=== PATIENT | female | born 1985 | race Caucasian/White ===

== ENCOUNTER 2018-09-22 09:43 | Outpatient (CLI) | payer OTHER ==
[2018-09-22] MEDS ORDERED: GADOPENTETATE DIMEGLUMINE 5 ML VIAL IVP ONE ×2 (09:49→10:42)
[2018-09-22] MEDS ORDERED: IOTHALAMATE MEGLUMINE 50 ML VIAL ONE (09:49)
[2018-09-22] MEDS ORDERED: LIDOCAINE 1% 10 ML MDV ONE (09:50)
[2018-09-22] MEDS ORDERED: IOTHALAMATE MEGLUMINE 50 ML VIAL IVP ONE (10:42)
[2018-09-22] MEDS ORDERED: BUFFERED LIDOCAINE 10 ML SYRINGE IU ONE (10:42)
--- NOTE | 2018-09-22 12:41 | XRAY Report ---
Reason: PAIN IN UNSPECIFIED SHOULDER Procedure Date: 09/22/2018 Accession Number: [id number] / [id number] Procedure: FL - Arthrogram Needle Placement CPT Code: FULL RESULT: EXAM: RIGHT SHOULDER ARTHROGRAPHIC INJECTION WITH FLUOROSCOPIC GUIDANCE EXAM DATE: 09/22/2018 10:38 AM. CLINICAL HISTORY: Pain in unspecified shoulder. COMPARISON: ARTHROGRAM SHOULDER RT 09/22/2018 10:54 AM. TECHNIQUE: The risks, benefits, and alternatives of the procedure were discussed with the patient. All questions were answered. Written and verbal consent were obtained. The glenohumeral joint was marked under fluoroscopy and prepped and draped in a sterile manner. Local anesthesia was performed with 1% lidocaine. A 22-gauge needle was then inserted into the glenohumeral joint. 10 mL of a solution containing 25% 1% lidocaine, 25% iodinated contrast, and a 1:200 dilution of gadolinium contrast in sterile saline was then injected. The needle was removed without immediate complication. Other: None. Fluoroscopy Time: 0.1 minutes. Number of Images: 2. FINDINGS: Bones and joints: No fracture or subluxation. Injection: Fluoroscopic images demonstrate needle placement and contrast in the glenohumeral joint. No contrast extravasation outside of the glenohumeral joint. IMPRESSION: Successful fluoroscopically guided arthrographic injection of the shoulder. [facility]
--- NOTE | 2018-09-22 17:15 | MRI Report ---
Reason: PAIN IN UNSPECIFIED SHOULDER Procedure Date: 09/22/2018 Accession Number: [id number] / [id number] Procedure: MRI - Arthrogram Shoulder RT CPT Code: FULL RESULT: EXAM: RIGHT SHOULDER MRI ARTHROGRAM WITH CONTRAST EXAM DATE: 09/22/2018 11:28 AM. CLINICAL HISTORY: Right shoulder pain for several weeks. COMPARISON: None. TECHNIQUE: Multiplanar, multisequence T1-weighted and fluid-sensitive sequences of the shoulder after an arthrographic injection of dilute gadolinium, dictated under a separate exam. Other: None. FINDINGS: Acromioclavicular Region: The acromion is type II. The acromioclavicular joint is unremarkable. The coracoacromial and coracoclavicular ligaments are intact. A minimal amount of contrast in the anterior subacromial/subdeltoid bursa is suspected to be iatrogenically placed, using it because of the rotator interval technique that was used for injection. Glenohumeral Region: No subluxation. No loose bodies. The articular cartilage is unremarkable. The glenohumeral ligaments and joint capsule are unremarkable. Bone Marrow: No fracture, marrow edema or bone lesions. Labrum: A full-thickness tear of the posterior-superior labrum can be seen on series 701, image 14). Biceps Tendon: The long head of the biceps tendon and biceps janeth are intact. Musculature/Rotator Cuff: The subscapularis, supraspinatus, infraspinatus, and teres minor tendons are intact. No edema or fatty atrophy. Other: The subcutaneous tissues are unremarkable. IMPRESSION: 1. Contrast in the subacromial/subdeltoid bursa appears to be iatrogenically placed. 2. Full-thickness tear of the posterior-superior labrum. [facility] MUSCULOSKELETAL RADIOLOGY SECTION
== END 2018-09-22 09:44 | disposition home or self-care (01) ==
LOC: DI 09:43
PROVIDERS: ATTEND Radiology Diagnostic Radiology
DX: S43.491A Other sprain of right shoulder joint, initial encounter (principal)
CPT/HCPCS: 23350; 73222; 77002; Q9961

== ENCOUNTER 2018-12-30 10:14 | Day surgery (SDC) | payer OTHER ==
[~2018-12-30 10:14] MED LIST: BUPIVACAINE 0.25% PF 10 ML VIAL ONE; EPINEPHrine 1 MG/ML AMP ONE
--- NOTE | 2018-12-30 10:16 | ANESTHESIA ---
Pre-Anesthesia VS, & Labs <Clinton Kent - Last Filed: 12/30/18 10:13> - NPO >8 hours - Is Patient ?: Waiver signed <Raiza Sorto - Last Filed: 12/30/18 11:32> - Diagnosis R shoulder SLAP tear, Labral lateral (Clinton Kent) R shoulder SLAP tear, Labral lateral (Raiza Sorto) - Procedure R shoulder arthroscopy, biceps tenodesis, DCE, SAD (Clinton Kent) R shoulder arthroscopy, biceps tenodesis, DCE, SAD (Raiza Sorto) Vital Signs: Temp Pulse Resp BP Pulse Ox 36 C L 68 12 114/85 H 97 12/30/18 10:36 12/30/18 10:36 12/30/18 10:36 12/30/18 10:36 12/30/18 10:36 Height 5 ft 5 in Weight (kg) 79.38 kg Home Medications and Allergies <Clinton Kent - Last Filed: 12/30/18 10:13> <Raiza Sorto - Last Filed: 12/30/18 11:32> Home Medications: Ambulatory Orders Acetaminophen [Tylenol] 650 mg PO Q6H PRN 12/20/18 Cetirizine [ZyrTEC] 10 mg PO DAILY 12/20/18 Pnv95/Ferrous Fumarate/FA [ Formula] 1 each PO 12/20/18 Thyroid,Pork [Nisswa Thyroid] 60 mg PO 12/20/18 Thyroid,Pork [Nisswa Thyroid] 90 mg PO 12/20/18 Acetaminophen [Tylenol] 650 mg PO Q6H PRN 12/20/18 Cetirizine [ZyrTEC] 10 mg PO DAILY 12/20/18 Pnv95/Ferrous Fumarate/FA [ Formula] 1 each PO 12/20/18 Thyroid,Pork [Nisswa Thyroid] 60 mg PO 12/20/18 Thyroid,Pork [Nisswa Thyroid] 90 mg PO 12/20/18 Allergies/Adverse Reactions: Allergies Allergy/AdvReac Type Severity Reaction Status Date / Time No Known Drug Allergies Allergy Verified 12/20/18 13:31 Anes History & Medical History - Medical History Cardiovascular: reports: None Pulmonary: reports: None Gastrointestinal: reports: None Urinary: reports: None Musculoskeletal: reports: Other Endocrine/Autoimmune: reports: HyPOthyroidism - Surgical History General: Other Gynecologic: Tubal ligation Orthopedic: Other <Clinton Kent P - Last Filed: 12/30/18 10:13> - Anesthetic History Anesthesia Complications: reports: No previous complications - Medical History Cardiovascular: reports: None Pulmonary: reports: None Gastrointestinal: reports: None Urinary: reports: None Endocrine/Autoimmune: reports: HyPOthyroidism Smoking Status: Never smoker - Surgical History Gynecologic: Tubal ligation <Raiza Sorto E - Last Filed: 12/30/18 11:32> Exam General: Alert Dental: WNL Mouth Opening: Greater than 4 Fingerbreadths Mallampati classification: I Thyromental Distance: greater than 6 cm Respiratory: Lungs clear Cardiovascular: Regular rate Mental/Cognitive Status: Alert/Oriented X3 <Raiza Sorto E - Last Filed: 12/30/18 11:32> Plan Anesthesia Type: General Consent for Procedure(s) Verified and Reviewed: Yes Code Status: Attempt Resuscitation ASA classification: 2-Mild systemic disease Is this case an emergency?: No <Raiza Sorto E - Last Filed: 12/30/18 11:32>
[2018-12-30] MEDS ORDERED: cefTRIAXone 2 GM VIAL ONE (10:32)
[2018-12-30] MEDS ORDERED: LACTATED RINGERS 1,000 ML IV ONE ×3 (10:35→15:19)
[2018-12-30] MEDS ORDERED: BUPIVACAINE 0.25% PF 10 ML VIAL SUBQ ONE ×2 (13:22→14:30)
[2018-12-30] MEDS ORDERED: ONDANSETRON 4 MG/2 ML VIAL IVP ONE (15:00)
[2018-12-30] MEDS ORDERED: GLYCOPYRROLATE 1 MG/5 ML VIAL IVP ONE (15:00)
[2018-12-30] MEDS ORDERED: fentaNYL 100 MCG/2 ML VIAL IVP ONE (15:00)
[2018-12-30] MEDS ORDERED: ACETAMINOPHEN 1,000 MG/100 ML 100 ML IV ONE (15:00)
[2018-12-30] MEDS ORDERED: MIDAZOLAM 2 MG/2 ML VIAL IVP ONE (15:00)
[2018-12-30] MEDS ORDERED: DEXAMETHASONE 4 MG/ML VIAL IVP ONE (15:00)
[2018-12-30] MEDS ORDERED: LIDOCAINE-MPF 2% 5 ML VIAL IM ONE (15:00)
[2018-12-30] MEDS ORDERED: PROPOFOL 200 MG/20 ML VIAL IVP ONE (15:00)
[2018-12-30] MEDS ORDERED: NEOSTIGMINE 1 MG/1 ML 10 ML MDV IVP ONE (15:00)
[2018-12-30] MEDS ORDERED: ONDANSETRON 4 MG/2 ML VIAL IVP PRN (15:19)
[2018-12-30] MEDS ORDERED: oxyCODONE 5 MG TABLET PO PRN (15:19)
[2018-12-30] MEDS: HYDROmorphone 1 MG/ML CARPUJECT ONE ×4 (15:25→15:50)
--- NOTE | 2018-12-30 15:44 | OPERATIVE REPORT ---
Operative Report - General Procedure Date: 12/30/18 Planned Procedure: Right shoulder arthroscopy, biceps tenodesis, distal clavicle excision, possible subacromial decompression, possible labral repair Pre-Op Diagnosis: Right shoulder SLAP tear, AC joint arthrosis Procedure Performed: Right shoulder arthroscopy, SLAP debridement, Limited intra-articular debridement, open subpectoral biceps tenodesis, open distal clavicle excision. Post Op Diagnosis: Right shoulder SLAP tear, AC joint arthrosis - Procedure Note Primary Surgeon: KATELYNN Barr Secondary Surgeon: CHERELLE Arroyo Anesthesia Technique: General ET tube, Regional block Estimated Blood Loss (mL): 25 - Other Other Information/Narrative: IMPLANTS: Arthrex fiber tack suture anchor POSTOPERATIVE PLAN: 0-2 weeks-Sling at all times. Pendulum exercises 5 times per day. Rehab per biceps tenodesis protocol. EXAMINATION UNDER ANESTHESIA: ROM: 180 degrees of forward flexion 175 degrees abduction, 90 degrees AB ER, 90 degrees AB IR Anterior load and shift: 1+ Posterior load and shift: 1+ Inferior sulcus: Negative ARTHROSCOPIC FINDINGS: Rotator interval: Frayed tissue in the rotator interval, at the upper border of the subscap and the medial biceps sling. Apparent [place] complex, with a cord like [facility] L and large anterior superior sub-labral foramen Biceps tendon & SLAP: Type II SLAP tear with significant fraying, with majority posterior component at the biceps anchor Subscapularis: Intact with upper border fraying as noted above, the insertion on the lesser tuberosity was stable to probing Rotator Cuff: Intact and without articular sided tearing HAGL: Negative Labrum: Anterior inferior and posterior inferior labrum was well adherent to the glenoid Glenoid Cartilage: Diffuse grade 1-2 changes, with some more focal chondromalacia near the bare area as well as the anterior-inferior quadrant Humeral Head Cartilage: Normal INDICATION FOR SURGERY: 33-year-old [id number] female sustained an injury to her right shoulder while playing softball over the summer, she denies discrete injury but reports significant pain after throwing the ball 3 or 4 times. MRI and exam was consistent with a SLAP tear. Exam also consistent with AC joint arthrosis. Nonoperative management failed to resolve symptoms. The risks, benefits, and alternatives were discussed. Risks included pain, bleeding, infection, damage to nearby structures, lack of symptom relief, implant complications, stiffness, need for further surgeries, DVT, PE, stroke, and even . She signed a written consent form. PROCEDURE IN DETAIL: The patient was met in the preoperative holding on the day of the procedure. Operative extremity was signed. Consent was verified. She desired to proceed. Regional anesthesia was obtained in the preoperative area. They were brought to the operating room and surrendered to anesthesia. Once general anesthesia was obtained they were placed in the lateral decubitus position with the operative side up. An axillary roll was placed and all bony prominences were well-padded. They were then prepped and draped in the standard sterile fashion. A surgical timeout was held to confirm the patient procedure, identity, procedure, laterality, allergies, images, and antibiotics. All were in agreement we proceeded. Balanced suspension was applied and we began with the approach for the distal clavicle excision. A 5 cm incision was made in line with the clavicle, centered over the acromioclavicular joint. Electrocautery was used to obtain hemostasis. Full-thickness skin flaps were made at the level of the fascia/joint capsule. The wound was then packed with a wet Ray-Erin. Next a standard diagnostic arthroscopy was performed utilizing posterior and anterior superior portal sites. The anterior superior portal site was created under direct visualization. The findings of the diagnostic arthroscopy can be found above. Frayed tissue in the rotator interval was debrided using the arthroscopic sucker shaver, and the biceps tendon was released from its insertio n on the superior labrum using a meniscal punch and contoured using the arthroscopic sucker shaver. The arthroscopic sucker shaver was also used to debride the frayed and loose labral tissue and the SLAP region. Following this, final pictures were taken and the arthroscopic fluid was drained from the joint. We turned our attention back to the distal clavicle excision and a full- thickness longitudinal incision was made to open the acromioclavicular joint. Electrocautery was used to dissect the joint capsule from the bony surfaces. 2 Homans were placed around the distal clavicle. Rongeur was used to debride the intra-articular disc. An 8 mm resection was measured and performed with a sagittal saw. Care was taken to ensure this cut was parallel to the joint surface. All sharp bony edges were rounded. A finger was placed with into the defect and the arm was adducted fully without any impingement in the joint. The joint was then irrigated copiously. A watertight capsular and fascial closure was performed with 0 Vicryl. Next we turned our attention to the mini open biceps tenodesis. A 5 cm incision was made near the axillary fold centered over the pectoralis major tendon. Electrocautery was used to obtain hemostasis. The fascia was opened with dissection scissors. Blunt digital dissection was used to identify the intertubercular groove just under the pectoralis major tendon. The long head of the biceps tendon was visualized within this interval. The short head of the biceps was retracted with my finger and the right angle was used to deliver the tendon of the long head of the biceps out of the wound. A avalos elevator was then used to debride all synovial tissue from the intertubercular groove. A fibertack was placed high within the groove. Both limbs of the fibertack were pulled on and it was well fixed. I then whipstitched the biceps tendon starting 2 cm proximal to the musculotendinous junction down to the musculotendinous junction and back up to the same 2 cm location with a single limb of the suture tack. The other suture was placed once through the tendon at the 2 cm location. I then cut all excess tendon off. The suture limb that was passed the single time was then pulled on and this reduced the tendon nicely into the groove. The elbow was fully straightened and there was no excess tension on the repair site. I then tied 7 reverse half hitches alternating to secure the tendon in its place. The wound was then irrigated copiously. The portal sites were then closed with 3-0 Monocryl buried. Any open incisions were closed with 2-0 Vicryl in the dermis and a running 3-0 Monocryl in the skin. Mastisol and Steri-Strips were applied. The biceps tenodesis incision was injected with 20 mL's of 0.25% Marcaine plain . A sterile dressing and a sling was applied. The patient was awakened and transferred to the recovery room.
[2018-12-30 16:42] VITALS: BP 129/68
[2018-12-30] MEDS ORDERED: oxyCODONE 5 MG TABLET ONE (16:43)
== END 2018-12-30 10:15 | disposition home or self-care (01) ==
LOC: SDS 10:14
PROVIDERS: ATTEND Orthopaedic Surgery
PROC: 0LS30ZZ Reposition Right Upper Arm Tendon, Open Approach (ICD-10-PCS; 2018-12-30)
PROC: 0PB90ZZ Excision of Right Clavicle, Open Approach (ICD-10-PCS; 2018-12-30)
PROC: 0RBJ4ZZ Excision of Right Shoulder Joint, Percutaneous Endoscopic Approach (ICD-10-PCS; principal; 2018-12-30 11:45)
DX: S43.431A Superior glenoid labrum lesion of right shoulder, initial encounter (principal); M19.011 Primary osteoarthritis, right shoulder; M75.21 Bicipital tendinitis, right shoulder; M94.211 Chondromalacia, right shoulder; Y93.64 Activity, baseball; Y92.328 Other athletic field as the place of occurrence of the external cause; Y92.320 Baseball field as the place of occurrence of the external cause; E03.9 Hypothyroidism, unspecified
CPT/HCPCS: 23120; 24340; 29822; A9270; C1713; J1170; J7120

== ENCOUNTER 2019-11-09 17:49 | Outpatient (CLI) | payer OTHER ==
--- NOTE | 2019-11-09 20:52 | MRI Report ---
Reason: FOOT DROP RT FOOT Procedure Date: 11/09/2019 Accession Number: [id number] / [id number] Procedure: MRI - Lumbar Spine W/O CPT Code: Final Report FULL RESULT: EXAM: MRI LUMBAR SPINE WITHOUT CONTRAST COMPARISON: None. CLINICAL HISTORY: Sudden onset of right foot drop. No pain or history of injury or trauma. TECHNIQUE: Multiplanar multisequence imaging is performed through the lumbar spine without contrast. FINDINGS: Evaluation of alignment shows no listhesis. Conus terminates at the T12-L1 level, conus is unremarkable. No retroperitoneal adenopathy or masses. Visualized abdominal aorta is of normal caliber. No pathologic marrow replacement. Dorsal soft tissues are relatively unremarkable. Disk levels: T12-L1. Minimal disk height loss. No significant canal or foraminal stenosis. L1-L2. Minimal disk height loss. No significant canal or foraminal stenosis. L2-L3. Minimal disk height loss. Minimal facet arthropathy. No significant canal or foraminal stenosis. L3-L4. Minimal disk height loss. Mild facet arthropathy. No significant canal or foraminal stenosis. L4-L5. Modest disk height loss. Mild to moderate bilateral facet arthropathy. No significant foraminal stenosis. Minimal canal stenosis. L5-S1. Mild disk height loss. No significant foraminal stenosis. Mild facet arthropathy. IMPRESSION: No radiographically significant canal or foraminal stenosis at any level. While I see no evidence of diskitis, osteomyelitis or epidural abscess, specifically not excluded without contrast administration.
== END 2019-11-09 17:50 | disposition home or self-care (01) ==
LOC: DI 17:49
PROVIDERS: ATTEND Orthopaedic Surgery
DX: M47.816 Spondylosis without myelopathy or radiculopathy, lumbar region (principal); M51.36 Other intervertebral disc degeneration, lumbar region
CPT/HCPCS: 72148

== ENCOUNTER 2019-11-18 12:14 | Outpatient (CLI) | payer OTHER ==
--- NOTE | 2019-11-20 08:16 | MRI Report ---
Reason: RT FOOT DROP Procedure Date: 11/18/2019 Accession Number: [id number] / [id number] Procedure: MRI - Femur/Thigh RT W/O CPT Code: Final Report FULL RESULT: EXAM: RIGHT FEMUR/THIGH MRI WITHOUT CONTRAST EXAM DATE: 11/18/2019 01:52 PM. CLINICAL HISTORY: Right FOOT DROP. COMPARISON: None. TECHNIQUE: Multiplanar, multisequence T1-weighted and fluid-sensitive sequences of the femur/thigh without contrast. Other: None. FINDINGS: Bones: No fractures or subluxations. No marrow edema. No bone lesions. Joint Spaces: Visualized portions of the hip and knee joints are unremarkable on these large [id number] images. Tendons: The visualized hamstring origins are unremarkable. Musculature: No edema or fatty atrophy. Other: The visualized sciatic and femoral nerves are unremarkable. The subcutaneous tissues are unremarkable. IMPRESSION: No MRI abnormalities in the femur/thigh. [facility]
--- NOTE | 2019-11-20 08:33 | MRI Report ---
Reason: RT FOOT DROP Procedure Date: 11/18/2019 Accession Number: [id number] / [id number] Procedure: MRI - Knee RT W/O CPT Code: Final Report FULL RESULT: EXAM: RIGHT KNEE MRI WITHOUT CONTRAST EXAM DATE: 11/18/2019 02:53 PM. CLINICAL HISTORY: Right FOOT DROP. COMPARISON: None. TECHNIQUE: Multiplanar, multisequence T1-weighted and fluid-sensitive sequences of the knee without contrast. Other: None. FINDINGS: Bones: No fractures or subluxations. No marrow edema. No bone lesions. Articular Cartilage: Focal grade I chondromalacia at the inferior aspect of the lateral patellar facet and the superior aspect of the lateral trochlear facet. Medial Meniscus: The medial meniscus is intact. Lateral Meniscus: The lateral meniscus is intact. Cruciate Ligaments: The anterior and posterior cruciate ligaments are intact. Collateral Ligaments: The medial collateral and lateral collateral ligamentous structures are intact. Tendons: The quadriceps, patellar, semimembranosus, and popliteus tendons are unremarkable. Musculature: No edema or fatty atrophy. Other: No effusion. No popliteal cyst. No loose bodies. The medial and lateral retinacula are intact. The subcutaneous tissues and fat pads are unremarkable. There is focal T2 hyperintense signal within, and very slight enlargement of the common peroneal nerve at the level of the posterior superior margin of the fibular head. No extrinsic compression of the common peroneal nerve. IMPRESSION: 1. Focal T2 hyperintense signal within, and very slight enlargement of the common peroneal nerve at the level of the fibular head which may represent neuritis. 2. 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 [facility]
--- NOTE | 2019-11-20 08:35 | MRI Report ---
Reason: RT FOOT DROP Procedure Date: 11/18/2019 Accession Number: [id number] / [id number] Procedure: MRI - Lower Leg (Tib-Fib) RT W/O CPT Code: Final Report FULL RESULT: EXAM: RIGHT CALF/TIBIA MRI WITHOUT CONTRAST EXAM DATE: 11/18/2019 02:23 PM. CLINICAL HISTORY: Right foot drop. COMPARISON: None. TECHNIQUE: Multiplanar, multisequence T1-weighted and fluid-sensitive sequences of the calf/tibia without contrast. Other: None. FINDINGS: Bones: No fractures or subluxations. No marrow edema. No bone lesions. Joint Spaces: Visualized portions of the ankle and knee joints are unremarkable. Tendons: The visualized tendons are unremarkable. Musculature: No edema or fatty atrophy. Other: The subcutaneous tissues are unremarkable. IMPRESSION: No MRI abnormalities in the calf/tibia. [facility]
--- NOTE | 2019-11-20 08:42 | MRI Report ---
Reason: RT FOOT DROP Procedure Date: 11/18/2019 Accession Number: [id number] / [id number] Procedure: MRI - Ankle RT W/O CPT Code: Final Report FULL RESULT: EXAM: RIGHT ANKLE/HINDFOOT MRI WITHOUT CONTRAST EXAM DATE: 11/18/2019 04:16 PM. CLINICAL HISTORY: Right foot drop. COMPARISON: None. TECHNIQUE: Multiplanar, multisequence T1-weighted and fluid-sensitive sequences of the ankle/hindfoot without contrast. Other: None. FINDINGS: Bones and articular cartilage: Small subcortical cyst at the lateral malleolus. An os trigonum variant is present. Minimal marrow edema within the os trigonum. No acute fracture or bone lesions. Articular cartilage is within normal limits. Ligaments: The anterior and posterior tibiofibular, anterior and posterior talofibular, and calcaneofibular ligaments are intact. The deep and superficial deltoid and spring ligaments are intact. Anterior Tendons: The tibialis anterior, extensor hallucis longus, and extensor digitorum longus tendons are unremarkable. Medial Tendons: Minimal distal posterior tibialis and mild distal flexor hallucis longus tenosynovitis. The flexor digitorum tendon is unremarkable. No tendon tear. Lateral Tendons: The peroneus brevis and longus are unremarkable. Achilles Tendon: The Achilles tendon is unremarkable. Musculature: No edema or fatty atrophy. Other: No effusions. There is a small 7 x 4 x 4 mm ganglion or synovial cyst within the medial aspect of the sinus tarsi. Otherwise, the sinus tarsi is unremarkable. The tarsal tunnel is unremarkable. No plantar fasciitis. The subcutaneous tissues are unremarkable. IMPRESSION: 1. 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 Therefore, there may be abnormal motion of the os trigonum variant. 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 2. Minimal distal posterior tibialis and mild distal flexor hallucis longus tenosynovitis. 3. Small ganglion or synovial cyst within the sinus tarsi. [facility]
--- NOTE | 2019-11-20 09:00 | MRI Report ---
Reason: RT FOOT DROP Procedure Date: 11/18/2019 Accession Number: [id number] / [id number] Procedure: MRI - Foot RT W/O CPT Code: Final Report FULL RESULT: EXAM: RIGHT MIDFOOT AND FOREFOOT MRI WITHOUT CONTRAST EXAM DATE: 11/18/2019 03:38 PM. CLINICAL HISTORY: Right foot drop. COMPARISON: None. TECHNIQUE: Multiplanar, multisequence T1-weighted and fluid-sensitive sequences of the midfoot forefoot without contrast. Other: None. FINDINGS: Bones: No fractures or subluxations. No marrow edema. No bone lesions. Articular Cartilage: Unremarkable. Ligaments: The visualized intertarsal, intermetatarsal, and tarsometatarsal ligaments are intact. This includes the Lisfranc ligament. The visualized collateral ligaments are intact. Tendons: The flexor and extensor tendons are unremarkable. Musculature: No edema or fatty atrophy. Other: No effusions. The visualized portion of the tarsal tunnel is unremarkable. No intermetatarsal bursitis. The subcutaneous tissues are unremarkable. IMPRESSION: No MRI abnormalities in the midfoot. [facility]
== END 2019-11-18 12:15 | disposition home or self-care (01) ==
LOC: DI 12:14
PROVIDERS: ATTEND Orthopaedic Surgery
DX: M21.371 Foot drop, right foot (principal); M94.261 Chondromalacia, right knee; M65.871 Other synovitis and tenosynovitis, right ankle and foot

== ENCOUNTER 2019-12-17 12:47 | Emergency (ER) | payer OTHER ==
[2019-12-17 13:21] LABS: BASOPHILS % (AUTO) 0.4 %; EOSINOPHILS # (AUTO) 0.1 10^3/uL (0.0-0.7); EOSINOPHILS % (AUTO) 0.8 %; HGB - HEMOGLOBIN 14.3 g/dL (12.0-16.0); LYMPHOCYTES # (AUTO) 2.4 10^3/uL (1.5-3.5); MEAN CORPUSCULAR HEMOGLOBIN 32.1 pg (27.0-31.0); MEAN CORPUSCULAR HGB CONC 33.3 g/dL (32.0-36.0); MEAN CORPUSCULAR VOLUME 96.4 fL (81.0-99.0); MEAN PLATELET VOLUME 9.4 fL (7.9-10.8); MONOCYTES # (AUTO) 0.5 10^3/uL (0.0-1.0); MONOCYTES % (AUTO) 6.5 %; NEUTROPHILS # (AUTO) 4.8 10^3/uL (1.5-6.6); NEUTROPHILS % (AUTO) 60.9 %; PLT - PLATELET COUNT 308 10^3/uL (130-450); RED BLOOD COUNT 4.46 10^6/uL (4.20-5.40); RED CELL DISTRIBUTION WIDTH 14.1 % (12.0-15.0); WHITE BLOOD COUNT 7.8 x10^3/uL (4.8-10.8)
[2019-12-17 13:35] LABS: ALBUMIN 4.4 g/dL (3.2-5.5); ALBUMIN/GLOBULIN RATIO 1.6 (1.0-2.2); BILIRUBIN,TOTAL 0.5 mg/dL (0.2-1.0); CALCIUM 8.9 mg/dL (8.5-10.3); CREATININE 0.4 mg/dL (0.4-1.0); TOTAL PROTEIN 7.1 g/dL (6.7-8.2)
[2019-12-17] MEDS ORDERED: SODIUM CHLORIDE 0.9% 1,000 ML IV ONE (14:09)
--- NOTE | 2019-12-17 14:17 | ED Physician Documentation ---
PD HPI FEMALE - Stated complaint Stated Complaint: FEMALE - Chief complaint Chief Complaint: Abd Pain - History obtained from History obtained from: Patient (34-year-old woman status post tubal ligation 2 years ago. For the last 3 days she has had heavy vaginal bleeding despite it being usually midcycle and she is usually regular with her menses. It started with jelly or clot now is more profuse. 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 - Present Medications Home Medications: Ambulatory Orders Medication Instructions Recorded Confirmed Acetaminophen [Tylenol] 650 mg PO Q6H PRN 12/20/18 12/30/18 Cetirizine [ZyrTEC] 10 mg PO DAILY 12/20/18 12/30/18 Pnv No.95/Ferrous Fum/Folic AC 1 each PO 12/20/18 [ Formula] Thyroid,Pork [[place] Thyroid] 60 mg PO 12/20/18 Thyroid,Pork [[place] Thyroid] 90 mg PO 12/20/18 Norgestimate-Ethinyl Estradiol 1 each PO TID #1 packet 12/17/19 [Ortho Tri-Cyclen 28 Tablet] - Allergies Allergies/Adverse Reactions: Allergies Allergy/AdvReac Type Severity Reaction Status Date / Time No Known Drug Allergies Allergy Verified 12/17/19 12:56 - Social History Smoking Status: Never smoker - Family History Family history: reports: Non contributory PD ED PE NORMAL - Vitals Vital signs reviewed: Yes - General General: Alert and oriented X 3, No acute distress - HEENT HEENT: PERRL, EOMI - Neck Neck: Supple, no meningeal sign, No bony TTP - Cardiac Cardiac: RRR, No murmur - Respiratory Respiratory: No respiratory distress, Clear bilaterally - Abdomen Abdomen: Normal bowel sounds, Soft, Non tender - Back Back: No CVA TTP, No spinal TTP - Derm Derm: Normal color, Warm and dry - Extremities Extremities: No edema, No calf tenderness / cord - Neuro Neuro: Alert and oriented X 3, Normal speech Results - Vitals Vitals: Vital Signs - 24 hr 12/17/19 12/17/19 12:53 14:26 Temperature 37 C Heart Rate 77 73 Respiratory 16 16 Rate Blood Pressure 151/92 H 120/87 H O2 Saturation 99 99 Oxygen O2 Source Room air - Labs Labs: Laboratory Tests 12/17/19 12/17/19 12/17/19 13:15 13:15 14:20 WBC 7.8 RBC 4.46 Hgb 14.3 Hct 43.0 MCV 96.4 MCH 32.1 H MCHC 33.3 RDW 14.1 Plt Count 308 MPV 9.4 Neut # (Auto) 4.8 Lymph # (Auto) 2.4 [place]y # (Auto) 0.5 Eos # (Auto) 0.1 Baso # (Auto) 0.0 Absolute Nucleated RBC 0.00 Nucleated RBC % 0.0 Sodium 137 Potassium 4.1 Chloride 101 Carbon Dioxide 27 Anion Gap 9.0 BUN 8 Creatinine 0.4 Estimated GFR (MDRD) 184 Glucose 92 Calcium 8.9 Total Bilirubin 0.5 AST 19 ALT 15 Alkaline Phosphatase 57 Total Protein 7.1 Albumin 4.4 Globulin 2.7 Albumin/Globulin Ratio 1.6 Lipase 28 Urine Color LIGHT YELLOW Urine Clarity CLEAR Urine pH 8.0 H Ur Specific [place] 1.015 Urine Protein NEGATIVE Urine Glucose (UA) NEGATIVE Urine Ketones NEGATIVE Urine Occult Blood TRACE-INTA Urine Nitrite NEGATIVE Urine Bilirubin NEGATIVE Urine Urobilinogen 0.2 (NORMAL) Ur Leukocyte Esterase NEGATIVE Ur Microscopic Review NOT INDICATED Urine Culture Comments NOT INDICATED Urine HCG, Qual NEGATIVE - Rads (name of study) Pelvic sono Radiology: EMP read contemporaneously (normal) PD MEDICAL DECISION MAKING - ED course ED course: 34-year-old woman with heavy dysfunctional uterine bleeding. No evidence of , ovarian cyst, or anemia based on work-up tonight. Departure - Departure Disposition: 01 Home, Self Care Clinical Impression: DUB (dysfunctional uterine bleeding) Condition: Good Record reviewed to determine appropriate education?: Yes Instructions: ED Bleed Irregular Vaginal Follow-Up: [facility] [Provider Group] Prescriptions: Norgestimate-Ethinyl Estradiol [Ortho Tri-Cyclen 28 Tablet] 1 each PO TID #1 packet Comments: Call your doctor to arrange a follow-up appointment, make the next available appointment. In the interim, return anytime if worse or if new symptoms develop.
[2019-12-17 14:30] LABS: BILIRUBIN,URINE NEGATIVE (NEGATIVE); GLUCOSE, URINE (UA) NEGATIVE (NEGATIVE); KETONES,URINE (UA) NEGATIVE (NEGATIVE); LEUKOCYTE ESTERASE, URINE NEGATIVE (NEGATIVE); NITRITE,URINE NEGATIVE (NEGATIVE); OCCULT BLOOD,URINE TRACE-INTA (NEGATIVE); PROTEIN,URINE NEGATIVE (NEGATIVE); UROBILINOGEN,URINE 0.2 (NORMAL) E.U./dL (NORMAL)
[2019-12-17 14:32] LABS: CLARITY,URINE CLEAR (CLEAR); HCG UR QUAL NEGATIVE
--- NOTE | 2019-12-17 17:48 | Ultrasound Report ---
Reason: L pelvic pain, Vag bleed Procedure Date: 12/17/2019 Accession Number: [id number] / [id number] Procedure: US - Pelvic w/Transvag+Doppler Comp CPT Code: Final Report FULL RESULT: EXAM: PELVIC ULTRASOUND WITH DOPPLERS CLINICAL HISTORY: L pelvic pain, Vag bleed. COMPARISON: Left pelvic pain, vaginal bleeding TECHNIQUE: Realtime transabdominal imaging performed to identify the uterus and adnexa and as an overview of other pelvic structures, followed by transvaginal imaging for better assessment of the endometrium and adnexa, with static image documentation. Color flow imaging and Doppler spectral analysis was performed to evaluate blood flow to the ovaries given pelvic pain and clinical concern for ovarian torsion. FINDINGS: Uterus: 9.2 x 4.2 x 6.2 cm, volume 127 cc. Anteverted position. Normal overall size and echotexture. Masses: None. Endometrium: 4 mm. Normal. Cervix: Unremarkable. Right Ovary: 2.5 x 1.7 x 1.5 cm, volume 3.4 cc. Normal echotexture. Arterial and venous blood flow are present. PSV 9.1 cm/sec. RI 0.7. Adnexa are unremarkable. Left Ovary: 3.0 x 1.8 x 1.6 cm, volume 4.4 cc. Normal echotexture. Arterial and venous blood flow are present. PSV 13.5 cm/sec. RI 0.7. Adnexa are unremarkable. Free Fluid: None. Other: None. IMPRESSION: 1. Negative pelvic ultrasound. 2. Arterial and venous blood flow are present to the ovaries bilaterally. RADIA
[2019-12-17 18:02] VITALS: BP 141/75
== END 2019-12-17 18:04 | disposition home or self-care (01) ==
LOC: ED 12:47
DX: N93.8 Other specified abnormal uterine and vaginal bleeding (principal); Z98.51 Tubal ligation status
CPT/HCPCS: 36415; 76830; 76856; 80053; 81001; 81003; 81025; 83690; 85025; 87086; 93975; 96360; 99285

== ENCOUNTER 2020-03-10 19:47 | Emergency (ER) | payer OTHER ==
[2020-03-10] MEDS ORDERED: DEXAMETHASONE 10 MG/ML VIAL PO STA (20:37)
[2020-03-10] MEDS ORDERED: CHERRY SYRUP 10 ML UDC PO ONE (20:37)
[2020-03-10] MEDS ORDERED: AMOX/CLAV 875 MG/125 MG TABLET PO STA (20:37)
[2020-03-10] MEDS ORDERED: oxyCODONE 5 MG TABLET PO STA (20:37)
--- NOTE | 2020-03-10 20:44 | ED Physician Documentation ---
History of Present Illness - Stated complaint Stated Complaint: R NECK SWELLING - Chief complaint Chief Complaint: Wound - History obtained from History obtained from: Patient - History of Present Illness Timing: How many days ago (4) Pain level max: 9 Pain level now: 9 - Additonal information Additional information: Right-sided neck swelling for 4 days. No fever. Worse with palpation, nothing makes it better. No rhinorrhea, congestion, cough. No nausea or vomiting. 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 - Present Medications Home Medications: Ambulatory Orders Medication Instructions Recorded Confirmed Acetaminophen [Tylenol] 650 mg PO Q6H PRN 12/20/18 12/30/18 Cetirizine [ZyrTEC] 10 mg PO DAILY 12/20/18 12/30/18 Pnv No.95/Ferrous Fum/Folic AC 1 each PO 12/20/18 [ Formula] Thyroid,Pork [[place] Thyroid] 60 mg PO 12/20/18 Thyroid,Pork [[place] Thyroid] 90 mg PO 12/20/18 Norgestimate-Ethinyl Estradiol 1 each PO TID #1 packet 12/17/19 [Ortho Tri-Cyclen 28 Tablet] Amox/Clav 875/125 [Augmentin] 1 tab PO Q12H #20 tablet 03/10/20 Oxycodone HCl 5 - 10 mg PO Q6H PRN #14 tablet 03/10/20 - Allergies Allergies/Adverse Reactions: Allergies Allergy/AdvReac Type Severity Reaction Status Date / Time No Known Drug Allergies Allergy Verified 03/10/20 19:55 - Social History Does the pt smoke?: No Smoking Status: Never smoker Does the pt drink ETOH?: No Does the pt have substance abuse?: No - Immunizations Immunizations are current?: Yes - POLST Patient has POLST: No PD ED PE NORMAL - Vitals Vital signs reviewed: Yes - General General: Alert and oriented X 3, No acute distress - HEENT HEENT: Moist mucous membranes, Other (Enlarged cervical lymph node to the right side of the neck. Anterior cervical chain. Tenderness to palpation. No abscess on ultrasound. Right side of the tonsil and the posterior pharynx has slight exudates on it with mild swelling. No tenderness over the parotid gland.) - Neck Neck: Supple, no meningeal sign - Derm Derm: Warm and dry - Neuro Neuro: Alert and oriented X 3 - Psych Psych: Normal mood, Normal affect Results - Vitals Vitals: Vital Signs - 24 hr 03/10/20 03/10/20 19:53 20:49 Temperature 37.2 C 37.0 C Heart Rate 81 80 Respiratory 16 16 Rate Blood Pressure 149/86 H 140/88 H O2 Saturation 100 100 Oxygen O2 Source Room air PD MEDICAL DECISION MAKING - ED course Complexity details: considered differential, d/w patient ED course: Patient with what appears to be cervical lymphadenitis. We will start on antibiotics for this. Will place on pain medication for home as well. Given a dose of steroid here. Patient is well-appearing, nontoxic. Afebrile. No evidence of retropharyngeal or parapharyngeal abscess. Patient counseled regarding signs and symptoms for which I believe and urgent re-evaluation would be necessary. Patient with good understanding of and agreement to plan and is comfortable going home at this time This document was made in part using voice recognition software. While efforts are made to proofread this document, sound alike and grammatical errors may occur. Departure - Departure Disposition: 01 Home, Self Care Clinical Impression: Acute cervical adenitis Condition: Good Instructions: ED Cervical Adenitis Abx Tx Follow-Up: Sadiq Bergeron MD [Primary Care Provider] - Within 1 week Prescriptions: Amox/Clav 875/125 [Augmentin] 1 tab PO Q12H #20 tablet Oxycodone HCl 5 - 10 mg PO Q6H PRN #14 tablet PRN Reason: pain Comments: Take all antibiotics until gone. Return if you worsen. This should improve over the next 24 to 48 hours. Do not drink alcohol or drive while on narcotic pain medicine. Note that many narcotic pain relievers also contain tylenol/acetaminophen. Please ensure that your total dose of acetaminophen from all sources does not exceed 3 grams (3000mg) per day. You may constipated on this medication, take a stool softener such as "Colace" twice a day while you are on it. Also recommend a faul-ggc-jdibowx laxative such as senna or MiraLAX any day that you do not have a bowel movement. If you received narcotic pain medication in the emergency department, do not drive or operate machinery for the next 24 hours. Return if you are not improving as expected. Discharge Date/Time: 03/10/20 20:49
[2020-03-10 20:50] VITALS: BP 140/88
== END 2020-03-10 20:49 | disposition home or self-care (01) ==
LOC: ED 19:47
DX: L04.0 Acute lymphadenitis of face, head and neck (principal); E03.9 Hypothyroidism, unspecified
CPT/HCPCS: 99282; 99284; A9270

== ENCOUNTER 2020-05-22 15:10 | Emergency (ER) | payer OTHER ==
[2020-05-22] MEDS ORDERED: HYDROcod/ACETAM 5/325 MG TABLET PO STA (15:51)
--- NOTE | 2020-05-22 15:53 | ED Physician Documentation ---
History of Present Illness - Stated complaint Stated Complaint: RT EAR PX - Chief complaint Chief Complaint: Heent - Additonal information Additional information: 34-year-old female presents to the emergency department with chief complaint of 3 to 4 days of acute right ear pain. This is in the setting of cough cold and congestion. Here she reports that 4 days ago she was tested negative for COVID- 19. She states that she has never had ear pain before. Has never been swimming. She reports that she did clean her ears with an jleh-xsw-gxrhvvr agent last week. She denies tinnitus, ear drainage. No fevers. Review of Systems Constitutional: denies: Fever, Chills Ears: reports: Ear pain. denies: Loss of hearing, Drainage/discharge, Tinnitus/ringing, Foreign body Nose: reports: Rhinorrhea / runny nose, Congestion Throat: denies: Dental pain / toothache, Oral lesions / sores, Sore throat Cardiac: denies: Chest pain / pressure, Palpitations Respiratory: reports: Cough. 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 - Present Medications Home Medications: Ambulatory Orders Medication Instructions Recorded Confirmed Acetaminophen [Tylenol] 650 mg PO Q6H PRN 12/20/18 12/30/18 Cetirizine [ZyrTEC] 10 mg PO DAILY 12/20/18 12/30/18 Pnv No.95/Ferrous Fum/Folic AC 1 each PO 12/20/18 [ Formula] Thyroid,Pork [[place] Thyroid] 60 mg PO 12/20/18 Thyroid,Pork [[place] Thyroid] 90 mg PO 12/20/18 Norgestimate-Ethinyl Estradiol 1 each PO TID #1 packet 12/17/19 [Ortho Tri-Cyclen 28 Tablet] Amox/Clav 875/125 [Augmentin] 1 tab PO Q12H #20 tablet 03/10/20 Oxycodone HCl 5 - 10 mg PO Q6H PRN #14 tablet 03/10/20 Ciprofloxacin/Hydrocortisone 10 ml OT BID #1 bottle 05/22/20 [Cipro Hc Otic Suspension] HYDROcod/ACETAM 5/325 [[place] 5/325] 1 each PO BID PRN #3 tablet 05/22/20 - Allergies Allergies/Adverse Reactions: Allergies Allergy/AdvReac Type Severity Reaction Status Date / Time No Known Drug Allergies Allergy Verified 05/22/20 15:24 - Social History Does the pt smoke?: No Smoking Status: Never smoker Does the pt drink ETOH?: No Does the pt have substance abuse?: No - Immunizations Immunizations are current?: Yes - POLST Patient has POLST: No PD ED PE NORMAL - General General: Alert and oriented X 3, No acute distress, Other (in pain) - HEENT HEENT: PERRL, EOMI, Moist mucous membranes, Pharynx benign, Dentition benign, Other (Right external auditory canal erythematous with small amount of mucopurulent drainage. Visible TM is intact. No mastoid tenderness on the right side. No anterior cervical lymphadenopathy bilaterally.) - Neck Neck: Supple, no meningeal sign, No adenopathy - Cardiac Cardiac: RRR, No murmur - Respiratory Respiratory: No respiratory distress - Abdomen Abdomen: Normal bowel sounds, Soft Results - Vitals Vitals: Vital Signs - 24 hr 05/22/20 15:15 Temperature 36.6 C Heart Rate 96 Respiratory 18 Rate Blood Pressure 160/95 H O2 Saturation 98 Oxygen O2 Source Room air PD MEDICAL DECISION MAKING - ED course Complexity details: d/w patient ED course: 34-year-old female presents to the emergency department with 4 days of right ear pain. This is in the setting of a head cold as well as recently cleaning her ears with an zlna-jbm-emvzhlr agent. On exam she has erythema swelling and mucopurulent drainage in the right external auditory canal. This is most consistent with otitis externa. Her visible TM on the right side is intact without effusion. Her pain may also be acutely worse in the setting given that she has a head cold. I have suggested an wwxl-kdt-fqfatbh decongestant to help relieve pain as eustachian tube plugging is likely also contributing. I will prescribe otic antibiotic drops as well as recommend ibuprofen for pain control. Given her severe pain will also prescribe a very limited number of [place] for home use. Patient encouraged to return to the emergency department if her symptoms not better in 24 to 48 hours Departure - Departure Disposition: 01 Home, Self Care Clinical Impression: Otitis externa Qualifiers: Otitis externa type: unspecified type Chronicity: acute Laterality: right Qualified Code(s): H60.501 - Unspecified acute noninfective otitis externa, right ear Condition: Stable Record reviewed to determine appropriate education?: Yes Instructions: ED Otitis Externa Ch Follow-Up: Sadiq Bergeron MD [Primary Care Provider] - Prescriptions: Ciprofloxacin/Hydrocortisone [Cipro Hc Otic Suspension] 10 ml OT BID #1 bottle HYDROcod/ACETAM 5/325 [[place] 5/325] 1 each PO BID PRN #3 tablet PRN Reason: Pain Comments: Your right ear canal is infected. 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 Your ear pain is probably worsened by your head cold. I would recommend an dtdt-hkm-tjvsbkj decongestant such as Sudafed or even Benadryl. Plugging of your eustachian tube is going to worsen your ear pain. I have prescribed a very limited number of [place] to help with pain at home. But I also recommend a warm compress over the ear for 10 minutes 3 times a day as well as ibuprofen. If your pain is worsening, you develop fevers, have ear drainage then please return immediately to the emergency department
[2020-05-22 16:06] VITALS: BP 149/98
== END 2020-05-22 16:07 | disposition home or self-care (01) ==
LOC: ED 15:10
DX: H60.501 Unspecified acute noninfective otitis externa, right ear (principal)
CPT/HCPCS: 99282; 99284; A9270

== ENCOUNTER 2020-10-25 06:22 | Day surgery (SDC) | payer OTHER ==
[2020-10-25] MEDS ORDERED: cefTRIAXone 2 GM VIAL ONE (06:25)
[2020-10-25 06:39] LABS: HCG UR QUAL NEGATIVE
[2020-10-25] MEDS ORDERED: LACTATED RINGERS 1,000 ML IV ONE ×2 (06:56→10:10)
[2020-10-25] MEDS ORDERED: ROPIVACAINE 0.5% PF 20 ML AMPULE ONE (06:58)
[2020-10-25] MEDS ORDERED: PROPOFOL 200 MG/20 ML VIAL IVP ONE (06:58)
[2020-10-25] MEDS ORDERED: LIDOCAINE-MPF 2% 5 ML VIAL ONE (06:58)
[2020-10-25] MEDS ORDERED: ROCURONIUM 50 MG/5 ML VIAL ONE (06:59)
[2020-10-25] MEDS ORDERED: fentaNYL 100 MCG/2 ML VIAL ONE (07:01)
[2020-10-25] MEDS ORDERED: MIDAZOLAM 2 MG/2 ML VIAL ONE (07:01)
[2020-10-25] MEDS ORDERED: EPINEPHrine 1 MG/ML AMP ONE (07:27)
[2020-10-25] MEDS ORDERED: ONDANSETRON 4 MG/2 ML VIAL ONE (08:03)
[2020-10-25] MEDS ORDERED: DEXAMETHASONE 4 MG/ML VIAL ONE (08:03)
[2020-10-25] MEDS ORDERED: METOCLOPRAMIDE 10 MG/2 ML VIAL IVP PRN (08:13)
[2020-10-25] MEDS ORDERED: NALOXONE 0.4 MG/ML VIAL IVP PRN (08:13)
[2020-10-25] MEDS ORDERED: diphenhydrAMINE INJ 50 MG/ML VIAL IVP PRN (08:13)
[2020-10-25] MEDS ORDERED: ACETAMINOPHEN 1,000 MG/100 ML 100 ML IV ONE ×2 (08:13→10:47)
[2020-10-25] MEDS ORDERED: ATROPINE ABBOJECT 1 MG/10 ML SYRINGE IVP PRN (08:13)
[2020-10-25] MEDS ORDERED: HYDROmorphone 0.5 MG/0.5 ML SYRINGE IVP PRN (08:13)
[2020-10-25] MEDS ORDERED: ONDANSETRON 4 MG/2 ML VIAL IVP PRN ×2 (08:13→10:20)
[2020-10-25] MEDS ORDERED: ePHEDrine 50 MG/ML VIAL IVP PRN (08:13)
[2020-10-25] MEDS ORDERED: MORPHINE 2 MG/ML CARPUJECT IVP PRN (08:13)
[2020-10-25] MEDS ORDERED: fentaNYL 100 MCG/2 ML VIAL IVP PRN (08:13)
--- NOTE | 2020-10-25 08:13 | ANESTHESIA ---
Pre-Anesthesia VS, & Labs - Diagnosis RIght Shoulder Pain - Procedure RIght shoulder arthroscopy Height: 5 ft 5 in Weight (kg): 72.57 kg Body Mass Index: 26.6 BMI Classification: Overweight - NPO >8 hours - Is Patient ?: No - Lab Results Lab results reviewed: Yes Home Medications and Allergies Acetaminophen [Tylenol] 650 mg PO Q6H PRN 12/20/18 Cetirizine [ZyrTEC] 10 mg PO DAILY 12/20/18 Pnv No.95/Ferrous Fum/Folic AC [ Formula] 1 each PO 12/20/18 Thyroid,Pork [[place] Thyroid] 60 mg PO 12/20/18 Thyroid,Pork [[place] Thyroid] 90 mg PO 12/20/18 Allergies/Adverse Reactions: Allergies Allergy/AdvReac Type Severity Reaction Status Date / Time No Known Drug Allergies Allergy Verified 10/21/20 11:22 Anes History & Medical History - Anesthetic History Anesthesia Complications: reports: No previous complications Family history of Anesthesia Complications: Denies Family history of Malignant Hyperthermia: Denies - Medical History Cardiovascular: reports: None Pulmonary: reports: None Gastrointestinal: reports: None Urinary: reports: None Musculoskeletal: reports: Other Endocrine/Autoimmune: reports: HyPOthyroidism Skin: reports: Rosacea Smoking Status: Never smoker - Surgical History General: Other Gynecologic: Tubal ligation Orthopedic: Shoulder arthroplasty Exam General: Alert, Oriented x3, Cooperative, No acute distress Dental: WNL Mouth Openin Fingerbreadth Neck Mobility: Normal Mallampati classification: I Thyromental Distance: 4-6 cm Respiratory: Lungs clear, Normal breath sounds, No respiratory distress, No accessory muscle use Cardiovascular: Regular rate, Normal S1, Normal S2, No murmurs Mental/Cognitive Status: Alert/Oriented X3, Normal for patient Cognitive Status: Within normal limits Plan Anesthesia Type: General, Interscalene Block Regional Block: Per Surgeon's request for Post Op pain control Consent for Procedure(s) Verified and Reviewed: Yes Code Status: Attempt Resuscitation ASA classification: 2-Mild systemic disease Is this case an emergency?: No
[2020-10-25] MEDS ORDERED: EPINEPHrine 1 MG/ML AMP IR ONE (08:28)
[2020-10-25] MEDS ORDERED: LACTATED RINGERS 1,000 ML IV SCH (09:00)
[2020-10-25] MEDS ORDERED: oxyCODONE 5 MG TABLET PO PRN (10:20)
--- NOTE | 2020-10-25 10:45 | OPERATIVE REPORT ---
Operative Report - General Procedure Date: 10/25/20 - Procedure Note Anesthesia Technique: General ET tube, Regional block Estimated Blood Loss (mL): 5 - Other Other Information/Narrative: Date of Procedure: 25 October 2020 Planned Procedure: Right shoulder arthroscopy, possible labral repair, possible SLAP debridement, possible rotator cuff repair, subacromial decompression Pre-op diagnosis: Right anterior shoulder pain, impingement, suggestion of remnant piece of biceps tenosynovium on repeat MR arthrogram Procedure performed: Right shoulder arthroscopy, limited intra-articular debridement, SLAP debridement subacromial decompression Post-op diagnosis: Right shoulder subacromial bursitis, rotator interval degenerative fraying, unstable SLAP tear Primary Surgeon: KATELYNN WATTERS Secondary Surgeon: Cara Anesthesia: Regional plus general endotracheal EBL: 5 ml IMPLANTS: None POSTOPERATIVE PLAN: 0-2 weeks-Sling for comfort, pendulum exercises 5 times per day. Progress range of motion as tolerated. 2-6 weeks-active range of motion in all planes without limitation 6-12 weeks-okay to start strengthening EXAMINATION UNDER ANESTHESIA: ROM: Forward flexion 180 degrees, abduction 175 degrees, ABER 90 degrees, ABIR 90 degrees Anterior load and shift: Normal Posterior load and shift: Normal Inferior sulcus: Mild positive ARTHROSCOPIC FINDINGS: Rotator interval: Significant degenerative fraying on the superior border of the subscapularis, middle glenohumeral ligament, and prior medial bicipital sling Biceps tendon & SLAP: Biceps tendon surgically absent. The superior labrum was highly mobile, with hypertrophic synovial tissue just behind it, all of this tissue was unstable, with a large fissure between the glenoid rim and the labrum. This was debrided with a combination of the arthroscopic sucker shaver, meniscal biters and radiofrequency ablation wand to a stable rim Subscapularis: Significant upper surface fraying, however status post debridement, the insertion appeared intact Rotator Cuff: The undersurface of the rotator cuff appeared intact, with good humeral attachment. The bursal surface of the rotator cuff appeared intact. There were no soft spots. There were some scattered areas of steroid crystals observed in the subacromial space. HAGL: There was no HAGL lesion Labrum: The anterior inferior, inferior, posterior inferior and posterior labrum had good adherence to the glenoid and were stable to probing. The superior labrum was mobile and detached and debrided as above Glenoid Cartilage: Overall intact. There is a small anteroinferior area of chondromalacia this was gently debrided with a sucker shaver to remove any loose tissue. There is also some additional chondromalacia at the bare area, again this was gently debrided with a sucker shaver to remove any loose tissue. Humeral Head Cartilage: Overall normal, some anterior wear INDICATIONFOR SURGERY: 35-year-old female who is approximately 22 months status post a right shoulder arthroscopy, distal clavicle excision and subpectoral biceps tenodesis. She initially did well after surgery, and at approximately the 5-month point had increasing pain in the bicipital groove that responded well to an ultrasound-guided injection. Approximately 1 year ago she started having some increasing lateral pain near the rotator cuff insertion that was treated with subacromial injections. The injections provided variable levels of relief, due to her persistent recurrent pain, a repeat MR arthrogram was obtained demonstrating progression of her SLAP tear, possible remnant biceps tendon or tenosynovium. Her exam had some signs consistent with bursitis versus a cuff impingement. Given her age and recurrent symptoms, we discussed treatment options to include continued nonoperative treatment with intermittent injections versus a second look arthroscopy, with possible intra-articular debridement, subacromial decompression and labral or rotator cuff treatment as indicated intraoperatively. The risks, benefits, and alternatives were discussed. Risks included pain, bleeding, infection, damage to nearby structures, lack of symptom relief, implant complications, stiffness, need for further surgeries, DVT, PE, stroke, and even . She signed a written consent form. PROCEDURE IN DETAIL: The patient was met in the preoperative holding on the day of the procedure. Operative extremity was signed. Consent was verified. She desired to proceed. Regional anesthesia was obtained in the preoperative area. They were brought to the operating room and surrendered to anesthesia. Once general anesthesia was obtained they were placed in the lateral decubitus position with the operative side up. An axillary roll was placed and all bony prominences were well-padded. They were then prepped and draped in the standard sterile fashion. A surgical timeout was held to confirm the patient procedure, identity, procedure, laterality, allergies, images, and antibiotics. All were in agreement we proceeded. Balanced suspension was applied and a standard diagnostic arthroscopy was performed utilizing posterior and anterior superior portal sites. The anterior superior portal site was created under direct visualization. The findings of the diagnostic arthroscopy can be found above. Overall her shoulder looked generally good, with some significant degenerative fraying along the superior s ubscapularis, and into the rotator interval. There was hypertrophic synovium just superior to a very mobile superior labrum. These were debrided to a stable rim, with improved mechanical excursion. The rotator interval and superior border of the investing tissue of the subscapularis was also gently debrided, and the insertion of the subscapularis was inspected and found to be intact. Following the intra-articular debridement and SLAP tear debridement, the instruments and cannula were then removed from the glenohumeral joint. The scope trocar was placed in the posterior portal and the acromion was felt. It was then inserted just under the acromion scraping along the bone until the CA ligament was felt. The scope trocar was then brought just lateral to the CA ligament and out the anterior incision. The cannula was then brought over the scope trocar arthroscope were inserted. The arthroscope was backed up until the shaver and arthroscope in the subacromial space. I then systemically debrided the bursa using a sucker shaver and radiofrequency ablation wand. The undersurface of the acromion was debrided to bone using the radiofrequency ablation wand followed by the shaver. The bursal tissue tissue was resected in the subacromial space as well as the gutter between the cuff and deltoid. Care was taken to keep the deltoid fascia intact. Bleeding points were cauterized using the ablation wand, and the rotator cuff was then evaluated, there was no full thickness tear. Final images were taken. The arthroscopic fluid was then drained from the shoulder and the instruments were removed. The portal sites were then closed with 3-0 Monocryl buried. Mastisol and Steri-Strips were applied. Xeroform was applied followed by a sterile dressing and a sling. During extubation, she bit her tongue, with some brisk bleeding initially that stopped fairly rapidly. She was then transferred to the [facility], and then to the recovery room.
[2020-10-25] MEDS ORDERED: KETOROLAC 15 MG/ML VIAL ONE (10:47)
[2020-10-25] MEDS ORDERED: KETOROLAC 30 MG/ML VIAL IVP SCH (11:00)
[2020-10-25] MEDS ORDERED: HYDROmorphone 0.5 MG/0.5 ML SYRINGE ONE ×2 (11:02→11:17)
[2020-10-25] MEDS ORDERED: oxyCODONE 5 MG TABLET ONE (11:45)
[2020-10-25 12:32] VITALS: BP 112/61
--- NOTE | 2020-10-25 15:12 | ANESTHESIA POST OP EVALUATION ---
Anesthesia Post Eval - Post Anesthesia Eval Vitals: Last Vital Signs Temp 36.2 C L 10/25/20 12:29 Pulse 100 10/25/20 12:29 Resp 15 10/25/20 12:29 BP 112/61 10/25/20 12:29 Pulse Ox 96 10/25/20 12:29 CV Function Including HR & BP: positive: Stable Pain Control: positive: Satisfactory Nausea & Vomiting: positive: Negative Mental Status: positive: Baseline Respiratory Status: Airway Patent Hydration Status: Satisfactory Anesthesia Complications: positive: None
== END 2020-10-25 06:23 | disposition home or self-care (01) ==
LOC: SDS 06:22
PROVIDERS: ATTEND Orthopaedic Surgery
DX: M75.51 Bursitis of right shoulder (principal); S43.431A Superior glenoid labrum lesion of right shoulder, initial encounter; M75.81 Other shoulder lesions, right shoulder
CPT/HCPCS: 29822; 81025; A9270; J0131; J1170; J7120

== ENCOUNTER 2020-10-28 10:52 | Emergency (ER) | payer OTHER ==
[2020-10-28 11:03] VITALS: BP 141/95
[2020-10-28] MEDS ORDERED: PENICILLIN VK 250 MG TABLET PO STA (11:32)
[2020-10-28] MEDS ORDERED: DEXAMETHASONE 10 MG/ML VIAL PO STA (11:32)
[2020-10-28] MEDS ORDERED: CHERRY SYRUP 10 ML UDC PO ONE (11:32)
--- NOTE | 2020-10-28 11:40 | ED Physician Documentation ---
History of Present Illness - Stated complaint Stated Complaint: SWOLLEN THROAT - Chief complaint Chief Complaint: Heent - History obtained from History obtained from: Patient - History of Present Illness Timing: How many days ago (3) Pain level max: 5 Pain level now: 5 - Additonal information Additional information: Patient is a 35-year-old female who presents to the emergency department with a sore throat for the past 3 days. She had left shoulder arthroscopic surgery on Wednesday at [facility]. Since that time has had an increasing sore throat. Now has pus on her tonsils. She states she had a negative rapid strep, but the throat has continued to worsen. 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 - Present Medications Home Medications: Ambulatory Orders Medication Instructions Recorded Confirmed Acetaminophen [Tylenol] 650 mg PO Q6H PRN 12/20/18 12/30/18 Thyroid,Pork [[place] Thyroid] 60 mg PO 12/20/18 Thyroid,Pork [[place] Thyroid] 90 mg PO 12/20/18 Ibuprofen [Motrin] 800 mg PO Q8H PRN #30 tablet 10/28/20 Penicillin V Potassium 500 mg PO Q6HR #40 tablet 10/28/20 oxyCODONE [Roxicodone] 1 tab PO PRN PRN 10/28/20 10/28/20 - Allergies Allergies/Adverse Reactions: Allergies Allergy/AdvReac Type Severity Reaction Status Date / Time No Known Drug Allergies Allergy Verified 10/28/20 11:04 - Social History Does the pt smoke?: No Smoking Status: Never smoker Does the pt drink ETOH?: No Does the pt have substance abuse?: No - Immunizations Immunizations are current?: Yes - POLST Patient has POLST: No PD ED PE NORMAL - Vitals Vital signs reviewed: Yes - General General: Alert and oriented X 3, No acute distress - HEENT HEENT: PERRL, Ears normal, Moist mucous membranes, Other (Posterior oropharynx is erythematous with tonsillar exudates. Normal phonation. No trismus. Uvula midline.) - Neck Neck: Supple, no meningeal sign, Other (Shotty anterior lymphadenopathy) - Cardiac Cardiac: RRR, Strong equal pulses - Respiratory Respiratory: No respiratory distress, Clear bilaterally - Abdomen Abdomen: Soft, Non tender, Non distended - Derm Derm: Warm and dry, No rash - Extremities Extremities: Other (Right arm in sling) - Neuro Neuro: Alert and oriented X 3 - Psych Psych: Normal mood, Normal affect Results - Vitals Vitals: Vital Signs - 24 hr 10/28/20 10:59 Temperature 36.6 C Heart Rate 70 Respiratory 18 Rate Blood Pressure 141/95 H O2 Saturation 99 Oxygen O2 Source Room air PD MEDICAL DECISION MAKING - ED course Complexity details: considered differential, d/w patient ED course: Patient with what appears to be strep pharyngitis clinically. Will place on antibiotics. Given dexamethasone as well. Patient already has a throat culture pending at [facility]. Patient counseled regarding signs and symptoms for which I believe and urgent re-evaluation would be necessary. Patient with good understanding of and agreement to plan and is comfortable going home at this time This document was made in part using voice recognition software. While efforts are made to proofread this document, sound alike and grammatical errors may occur. Departure - Departure Disposition: 01 Home, Self Care Clinical Impression: Pharyngitis Qualifiers: Pharyngitis/tonsillitis etiology: unspecified etiology Qualified Code(s): J02.9 - Acute pharyngitis, unspecified Condition: Good Instructions: ED Strep Pharyngitis Poss Follow-Up: your,doctor in 1 week if not better [Other] Prescriptions: Penicillin V Potassium 500 mg PO Q6HR #40 tablet Ibuprofen [Motrin] 800 mg PO Q8H PRN #30 tablet PRN Reason: PAIN &/OR FEVER Comments: Take all antibiotics until gone. Return if you worsen. Follow-up with your doctor for further care. Drink plenty of fluids. Discharge Date/Time: 10/28/20 11:50
== END 2020-10-28 11:50 | disposition home or self-care (01) ==
LOC: ED 10:52
DX: J02.9 Acute pharyngitis, unspecified (principal)
CPT/HCPCS: 99282; 99284; A9270

== ENCOUNTER 2022-05-06 09:37 | Emergency (ER) | payer OTHER ==
[2022-05-06 10:25] LABS: BASOPHILS % (AUTO) 0.5 %; EOSINOPHILS # (AUTO) 0.1 10^3/uL (0.0-0.7); EOSINOPHILS % (AUTO) 1.7 %; HCT - HEMATOCRIT 42.8 % (37.0-47.0); HGB - HEMOGLOBIN 14.5 g/dL (12.0-16.0); LYMPHOCYTES # (AUTO) 2.5 10^3/uL (1.5-3.5); LYMPHOCYTES % (AUTO) 38.3 %; MEAN CORPUSCULAR HEMOGLOBIN 31.1 pg (27.0-31.0); MEAN CORPUSCULAR HGB CONC 33.9 g/dL (32.0-36.0); MEAN CORPUSCULAR VOLUME 91.8 fL (81.0-99.0); MEAN PLATELET VOLUME 9.2 fL (7.9-10.8); MONOCYTES # (AUTO) 0.5 10^3/uL (0.0-1.0); MONOCYTES % (AUTO) 7.3 %; NEUTROPHILS # (AUTO) 3.4 10^3/uL (1.5-6.6); PLT - PLATELET COUNT 319 10^3/uL (130-450); RED BLOOD COUNT 4.66 10^6/uL (4.20-5.40); WHITE BLOOD COUNT 6.5 x10^3/uL (4.8-10.8)
[2022-05-06 10:36] LABS: BILIRUBIN,URINE NEGATIVE (NEGATIVE); GLUCOSE, URINE (UA) NEGATIVE (NEGATIVE); KETONES,URINE (UA) NEGATIVE (NEGATIVE); LEUKOCYTE ESTERASE, URINE NEGATIVE (NEGATIVE); NITRITE,URINE NEGATIVE (NEGATIVE); OCCULT BLOOD,URINE NEGATIVE (NEGATIVE); PROTEIN,URINE NEGATIVE (NEGATIVE); UROBILINOGEN,URINE 0.2 (NORMAL) E.U./dL (NORMAL)
[2022-05-06 10:38] LABS: ALBUMIN 4.9 g/dL (3.2-5.5); ALBUMIN/GLOBULIN RATIO 1.8 (1.0-2.2); BILIRUBIN,TOTAL 0.6 mg/dL (0.2-1.0); CALCIUM 10.1 mg/dL (8.5-10.3); CREATININE 0.5 mg/dL (0.4-1.0); POTASSIUM 4.3 mmol/L (3.5-5.0); TOTAL PROTEIN 7.7 g/dL (6.7-8.2)
[2022-05-06 10:41] LABS: CLARITY,URINE CLEAR (CLEAR); HCG UR QUAL NEGATIVE
[2022-05-06] MEDS ORDERED: SODIUM CHLORIDE 0.9% 1,000 ML IV STA (11:47)
[2022-05-06] MEDS ORDERED: HYDROmorphone 1 MG/ML CARPUJECT IVP STA (11:47)
[2022-05-06] MEDS ORDERED: ONDANSETRON 4 MG/2 ML VIAL IVP STA (11:47)
--- NOTE | 2022-05-06 11:50 | ED Physician Documentation ---
History of Present Illness - Stated complaint Stated Complaint: LOW R ABD PAIN - Chief complaint Chief Complaint: Abd Pain - Additonal information Additional information: 36-year-old female presents emergency department for evaluation of 2 days acute right lower quadrant abdominal pain. She states that recently she has had some gastroenteritis in the stomach flu but that had resolved until yesterday. She at times has a severe sharp nonradiating pain. It is worse when she lays flat. No vomiting or diarrhea. No fevers no dysuria. Past surgical history is most significant for tubal ligation Review of Systems Constitutional: denies: Fever, Chills Eyes: reports: Reviewed and negative Throat: reports: Reviewed and negative Cardiac: reports: Reviewed and negative Respiratory: reports: Reviewed and negative GI: reports: Abdominal Swelling, Nausea. 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 - Present Medications Home Medications: Ambulatory Orders Medication Instructions Recorded Confirmed Thyroid,Pork [[place] Thyroid] 60 mg PO 12/20/18 Thyroid,Pork [[place] Thyroid] 90 mg PO DAILY 12/20/18 HYDROcod/ACETAM 5/325 [[place] 5/325] 1 - 2 tablet PO Q6H PRN #10 tablet 05/06/22 metroNIDAZOLE 0.75% GEL [Flagyl 45 applic TOP DAILY 05/06/22 05/06/22 Gel] - Allergies Allergies/Adverse Reactions: Allergies Allergy/AdvReac Type Severity Reaction Status Date / Time No Known Drug Allergies Allergy Verified 05/06/22 09:43 - Social History Does the pt smoke?: No Smoking Status: Never smoker Does the pt drink ETOH?: No Does the pt have substance abuse?: No - Immunizations Immunizations are current?: Yes - POLST Patient has POLST: No PD ED PE NORMAL - General General: Alert and oriented X 3, No acute distress, Well developed/nourished - HEENT HEENT: Atraumatic - Neck Neck: Supple, no meningeal sign, No adenopathy - Cardiac Cardiac: RRR, No murmur - Respiratory Respiratory: No respiratory distress, Clear bilaterally - Abdomen Abdomen: Normal bowel sounds, Soft. No: Non tender (Focal tenderness in the right lower quadrant. 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 Eye Opening: Spontaneous Motor: Obeys Commands Verbal: Oriented GCS Score: 15 Results - Vitals Vitals: Vital Signs - 24 hr 05/06/22 09:40 Temperature 36.3 C L Heart Rate 88 Respiratory 18 Rate Blood Pressure 129/79 O2 Saturation 100 Oxygen O2 Source Room air - Labs Labs: Laboratory Tests 05/06/22 05/06/22 05/06/22 10:20 10:20 10:27 WBC 6.5 RBC 4.66 Hgb 14.5 Hct 42.8 MCV 91.8 MCH 31.1 H MCHC 33.9 RDW 14.0 Plt Count 319 MPV 9.2 Neut # (Auto) 3.4 Lymph # (Auto) 2.5 Fountain # (Auto) 0.5 Eos # (Auto) 0.1 Baso # (Auto) 0.0 Absolute Nucleated RBC 0.00 Nucleated RBC % 0.0 Sodium 137 Potassium 4.3 Chloride 101 Carbon Dioxide 27 Anion Gap 9.0 BUN 10 Creatinine 0.5 Estimated GFR (MDRD) 140 Glucose 94 Calcium 10.1 Total Bilirubin 0.6 AST 19 ALT 14 Alkaline Phosphatase 67 Total Protein 7.7 Albumin 4.9 Globulin 2.8 Albumin/Globulin Ratio 1.8 Lipase 35 Urine Color YELLOW Urine Clarity CLEAR Urine pH 6.0 Ur Specific [place] <=1.005 Urine Protein NEGATIVE Urine Glucose (UA) NEGATIVE Urine Ketones NEGATIVE Urine Occult Blood NEGATIVE Urine Nitrite NEGATIVE Urine Bilirubin NEGATIVE Urine Urobilinogen 0.2 (NORMAL) Ur Leukocyte Esterase NEGATIVE Ur Microscopic Review NOT INDICATED Urine Culture Comments NOT INDICATED Urine HCG, Qual 05/06/22 10:27 WBC RBC Hgb Hct MCV MCH MCHC RDW Plt Count MPV Neut # (Auto) Lymph # (Auto) [place] # (Auto) Eos # (Auto) Baso # (Auto) Absolute Nucleated RBC Nucleated RBC % Sodium Potassium Chloride Carbon Dioxide Anion Gap BUN Creatinine Estimated GFR (MDRD) Glucose Calcium Total Bilirubin AST ALT Alkaline Phosphatase Total Protein Albumin Globulin Albumin/Globulin Ratio Lipase Urine Color Urine Clarity Urine pH Ur Specific [place] Urine Protein Urine Glucose (UA) Urine Ketones Urine Occult Blood Urine Nitrite Urine Bilirubin Urine Urobilinogen Ur Leukocyte Esterase Ur Microscopic Review Urine Culture Comments Urine HCG, Qual NEGATIVE - Rads (name of study) CT abd Radiology: Final report received (Appendix is not definitively identified. No secondary signs for acute appendicitis. 1.5 cm irregular enhancing nodule in the right ovary probably collapsing corpus luteal cyst.) pelvic US Radiology: Final report received (1.8 cm hemorrhagic right ovarian cyst with small to moderate amount of pelvic free fluid) PD MEDICAL DECISION MAKING - ED course Complexity details: considered differential, d/w patient ED course: Well-appearing 36-year-old female presents emergency department for evaluation of acute right lower quadrant abdominal pain. Symptoms began 2 days ago. Constant in nature. No fevers or vomiting. Screening labs are essentially unremarkable without findings of infection in the urine. 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 Pelvic ultrasound identified hemorrhagic right ovarian cyst with small to moderate amount of pelvic free fluid. Symptoms are modestly controlled with Toradol and hydromorphone. Limited prescription for hydrocodone is sent to the [facility] in [place]. [place] Emergent worrisome return precautions otherwise discussed Departure - Departure Disposition: 01 Home, Self Care Clinical Impression: Hemorrhage of corpus luteum cyst of right ovary Condition: Stable Record reviewed to determine appropriate education?: Yes Instructions: ED Cyst Ovarian Prescriptions: HYDROcod/ACETAM 5/325 [[place] 5/325] 1 - 2 tablet PO Q6H PRN #10 tablet PRN Reason: Pain Comments: You are seen today in the emergency department for pain in the right lower quadrant of your abdomen. Your screening labs today are essentially unremarkable and the CT scan did not show findings for acute appendicitis. The ultrasound does show a 1.8 cm hemorrhagic right ovarian cyst. There is a small amount of blood in your lower pelvic region from the cyst. It is the blood that is typically irritating and the cause of most of the pain. This should begin to resolve over the next few days. In general I recommend that you take Tylenol 500 mg with food 2-3 times a day or alternate with ibuprofen 600 mg with food 2- 3 times a day. For very severe pain only I have sent a limited prescription for hydrocodone to your pharmacy. I do recommend close [place] If you find that your symptoms are worsening, you develop fevers have uncontrolled pain or vomiting then please return the ER for second evaluation.
--- NOTE | 2022-05-06 12:37 | CT Report ---
PROCEDURE: Abdomen/Pelvis W INDICATIONS: RLQ abd pain CONTRAST: IV CONTRAST: Optiray 320 ml: 100 PO CONTRAST: *NO PO CONTRAST TECHNIQUE: After the administration of intravenous contrast, 5 mm thick sections acquired from the diaphragms to the symphysis. 5 mm thick coronal and sagittal reformats were acquired. For radiation dose reducti on, the following was used: automated exposure control, adjustment of mA and/or kV according to ligia ent size. COMPARISON: Pelvic ultrasound, 12/17/2019. FINDINGS: Image quality: Excellent. ABDOMEN: Lung bases: Lung bases are clear. Heart size is normal. Solid organs: Liver and spleen are normal in size and enhancement. Gallbladder is normal. Biliary system is non dilated. Pancreas enhances normally. No adrenal nodules. Kidneys demonstrate normal size and enhancement, without hydronephrosis. Bilateral extrarenal pelvis. Peritoneum and bowel: Bowel loops demonstrate normal wall thickness and caliber. Appendix is not de finitively identified. There is no inflammatory stranding in the right lower quadrant to suggest acut e appendicitis. No free fluid or air. Nodes and vessels: No retroperitoneal or mesenteric adenopathy by size criteria. Aorta and inferior vena cava are normal in size. Miscellaneous: Small fat-containing umbilical hernia. PELVIS: Genitourinary: Bladder wall thickness is normal. Uterus is normal. There is a 1.5 cm irregular enha ncing nodule in the right ovary. Ovaries are otherwise normal. There is trace amount of free fluid in the cul-de-sac, likely within physiological limits. Miscellaneous: No inguinal hernias or adenopathy. Bones: No suspicious bony lesions. No vertebral body compression fractures. IMPRESSION: 1. Appendix is not definitively identified. No secondary signs for acute appendicitis. 2. A 1.5 cm irregular enhancing nodule in the right ovary, probably a collapsing corpus with cirrhosi s. If clinically indicated, pelvic ultrasound may be obtained for follow-up. Reviewed by: Perez Padilla MD on 05/06/2022 12:36 PM PDT Approved by: Perez Padilla MD on 05/06/2022 12:36 PM PDT Station ID: [id number]
[2022-05-06] MEDS ORDERED: KETOROLAC 30 MG/ML VIAL IVP STA (14:57)
[2022-05-06] MEDS ORDERED: HYDROcod/ACETAM 5/325 MG TABLET PO STA (15:18)
[2022-05-06 15:43] VITALS: BP 113/75
--- NOTE | 2022-05-06 15:52 | Ultrasound Report ---
PROCEDURE: Pelvic w/Transvag+Doppler Comp INDICATIONS: pelvic pain, R TECHNIQUE: Real-time scanning was performed of the pelvic organs, with image documentation. Additional endovagi nal scanning was necessary due to incomplete visualization of the adnexal and endometrial structures by transabdominal scanning. Doppler interrogation was performed of the ovaries bilaterally. COMPARISON: CT abdomen and pelvis from earlier same day. FINDINGS: No pathologic free abdominal or pelvic fluid. Uterus: Uterus is normal in size at 10.3 x 5.4 x 6.1 cm. The endometrium measures 11 mm in combined thickness. Normal uterine echotexture. Ovaries: Right ovary measures 3.8 x 2.1 x 2.5 cm with ovarian volume of 10.6 mL. There is an ovoid s tructure with heterogeneous echogenicity measuring 1.8 x 2.0 x 1.4 cm. There is mild peripheral vascu larity. This correlates with small cystic lesion seen on comparison CT. Left ovary measures 2.5 x 3.5 x 1.5 cm with ovarian volume of 7.1 mL. No suspicious ovarian or adnexal mass lesions on the left. Other: No free pelvic fluid. IMPRESSION: 1. Pelvic ultrasound without acute sonographic abnormalities. 2. There is a heterogeneous mixed echogenic ovoid lesion within the right ovary measuring 2.0 cm whic h likely represents a functional cyst. Recommend follow-up pelvic ultrasound in 6-12 weeks to documen t stability versus resolution. 3. Normal appearance of the left ovary. Reviewed by: Chase Aarujo MD on 05/06/2022 3:51 PM PDT Approved by: Chase Araujo MD on 05/06/2022 3:51 PM PDT Station ID: [id number]
== END 2022-05-06 15:43 | disposition home or self-care (01) ==
LOC: ED 09:37
DX: N83.11 Corpus luteum cyst of right ovary (principal)
CPT/HCPCS: 36415; 74177; 76830; 76856; 80053; 81003; 81025; 83690; 85025; 93975; 96374; 96375; 99283; 99284; A9270; J1170; Q9967; 81001; 87086

== ENCOUNTER 2022-06-16 08:00 | Outpatient (CLI) | payer OTHER ==
[2022-06-16 12:20] LABS: BASOPHILS % (AUTO) 0.4 %; EOSINOPHILS # (AUTO) 0.1 10^3/uL (0.0-0.7); HCT - HEMATOCRIT 42.2 % (37.0-47.0); LYMPHOCYTES # (AUTO) 2.3 10^3/uL (1.5-3.5); LYMPHOCYTES % (AUTO) 31.9 %; MEAN CORPUSCULAR HGB CONC 33.2 g/dL (32.0-36.0); MEAN CORPUSCULAR VOLUME 93.4 fL (81.0-99.0); MEAN PLATELET VOLUME 10.1 fL (7.9-10.8); MONOCYTES # (AUTO) 0.4 10^3/uL (0.0-1.0); MONOCYTES % (AUTO) 5.6 %; NEUTROPHILS # (AUTO) 4.3 10^3/uL (1.5-6.6); NEUTROPHILS % (AUTO) 60.7 %; PLT - PLATELET COUNT 341 10^3/uL (130-450); RED BLOOD COUNT 4.52 10^6/uL (4.20-5.40); RED CELL DISTRIBUTION WIDTH 13.2 % (12.0-15.0); WHITE BLOOD COUNT 7.1 x10^3/uL (4.8-10.8)
[2022-06-16 12:46] LABS: ALBUMIN 4.5 g/dL (3.2-5.5); ALBUMIN/GLOBULIN RATIO 1.5 (1.0-2.2); ALKALINE PHOSPHATASE 70 IU/L (42-121); ALT ALANINE AMINOTRANSFERASE 26 IU/L (10-60); AST ASPARTATE AMINOTRANSFERASE 24 IU/L (10-42); BILIRUBIN,TOTAL 0.7 mg/dL (0.2-1.0); BUN - BLOOD UREA NITROGEN 6 mg/dL (6-20); CALCIUM 9.2 mg/dL (8.5-10.3); CARBON DIOXIDE - CO2 28 mmol/L (21-32); CHLORIDE 102 mmol/L (101-111); CREATININE 0.4 mg/dL (0.4-1.0); GFR - MDRD 182 (>89); GLUCOSE 92 mg/dL (70-100); POTASSIUM 3.7 mmol/L (3.5-5.0); SODIUM 138 mmol/L (135-145); TOTAL PROTEIN 7.5 g/dL (6.7-8.2)
[2022-06-16 12:52] LABS: CRP - C-REACTIVE PROTEIN < 1.0 mg/dL (0-1.0)
== END 2022-06-16 23:59 | disposition home or self-care (01) ==
LOC: LAB.N 08:00
PROVIDERS: ATTEND Registered Nurse
DX: R00.0 Tachycardia, unspecified (principal); R07.89 Other chest pain; R05.1 Acute cough
CPT/HCPCS: 36415; 80053; 85025; 85379; 86140

== ENCOUNTER 2022-06-16 08:00 | Outpatient (CLI) | payer OTHER ==
--- NOTE | 2022-06-16 22:03 | XRAY Report ---
PROCEDURE: Chest 2 View X-Ray INDICATIONS: ACUTE COUGH TECHNIQUE: 2 view(s) of the chest. COMPARISON: None. FINDINGS: Surgical changes and devices: None. Lungs and pleura: No pleural effusions or pneumothorax. Lungs are clear. Mediastinum: Mediastinal contours are normal. Heart size is normal. Bones and chest wall: No suspicious bony abnormalities. Soft tissues appear unremarkable. IMPRESSION: No acute pulmonary process. Reviewed by: Abby Arango MD on 06/16/2022 10:02 PM PDT Approved by: bAby Arango MD on 06/16/2022 10:02 PM PDT Station ID: [id number]
== END 2022-06-16 23:59 | disposition home or self-care (01) ==
LOC: DI.N 08:00
PROVIDERS: ATTEND Registered Nurse
DX: R05.1 Acute cough (principal); R07.89 Other chest pain

== ENCOUNTER 2022-11-26 10:16 | Outpatient (CLI) | payer OTHER ==
--- NOTE | 2022-11-26 11:54 | MRI Report ---
PROCEDURE: BRAIN WO INDICATIONS: HEAD INJURY TECHNIQUE: Noncontrast axial T1 spin echo, axial T2 fast spin echo, sagittal and axial FLAIR, coronal T2 fast sp in echo, axial gradient echo, axial diffusion and ADC through the brain. COMPARISON: None. FINDINGS: Image quality: Motion artifact is noted. CSF Spaces: Basal cisterns are patent. No extra-axial fluid collections. Ventricles are normal in size and shape. Brain: No intracranial masses or hemorrhage. Guzman/white matter interface is normal. Brainstem appe ars normal. Diffusion-weighted images demonstrate no acute ischemic insult. No chronic ischemic ins ults. Normal intravascular flow voids are present. Skull and face: Calvarium has normal marrow signal. Orbits appear normal. Sinuses: Sinuses and mastoids are clear. IMPRESSION: Unremarkable intracranial study, without hemorrhage or brain edema seen. Reviewed by: Devante Carlson MD on 11/26/2022 10:53 AM [facility] Approved by: Devante Carlson MD on 11/26/2022 10:53 AM [facility] Station ID: [id number]
== END 2022-11-26 10:17 | disposition home or self-care (01) ==
LOC: DI 10:16
DX: S06.9X9D Unspecified intracranial injury with loss of consciousness of unspecified duration, subsequent encounter (principal)

== ENCOUNTER 2023-02-07 17:22 | Emergency (ER) | payer OTHER ==
[2023-02-07] MEDS ORDERED: BENZONATATE 100 MG CAPSULE PO STA (19:12)
[2023-02-07] MEDS ORDERED: CETIRIZINE 10 MG TABLET PO STA (19:12)
[2023-02-07] MEDS ORDERED: PSEUDOEPHEDRINE 30 MG TABLET PO STA (19:12)
--- NOTE | 2023-02-07 19:14 | ED Physician Documentation ---
History of Present Illness - Stated complaint Stated Complaint: C+,COUGH,ACHES - Chief complaint Chief Complaint: Resp - History obtained from History obtained from: Patient - History of Present Illness Timing: How many weeks ago (1) Pain level max: 0 Pain level now: 0 - Additonal information Additional information: 37-year-old female states that she has been sick for the past 1 week. Tested positive for COVID today and was told to come here by the [employer]. No dyspnea. No chest pain. No vomiting. No rash. Review of Systems Constitutional: reports: Chills. denies: Fever Nose: reports: Rhinorrhea / runny nose, Congestion Throat: reports: Sore throat Respiratory: reports: Cough. 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 - Present Medications Home Medications: Ambulatory Orders Medication Instructions Recorded Confirmed Thyroid,Pork [[place] Thyroid] 60 mg PO 12/20/18 Thyroid,Pork [[place] Thyroid] 90 mg PO DAILY 12/20/18 HYDROcod/ACETAM 5/325 [[place] 5/325] 1 - 2 tablet PO Q6H PRN #10 tablet 05/06/22 metroNIDAZOLE 0.75% GEL [Flagyl 45 applic TOP DAILY 05/06/22 05/06/22 Gel] Benzonatate [Tessalon] 200 mg PO TID PRN #30 cap 02/07/23 Cetirizine HCl/Pseudoephedrine 1 each PO BID PRN #30 tab 02/07/23 [Zyrtec-D Tablet] - Allergies Allergies/Adverse Reactions: Allergies Allergy/AdvReac Type Severity Reaction Status Date / Time No Known Drug Allergies Allergy Verified 05/06/22 09:43 - Social History Does the pt smoke?: No Smoking Status: Never smoker Does the pt drink ETOH?: No Does the pt have substance abuse?: No - Immunizations Immunizations are current?: Yes - POLST Patient has POLST: No PD ED PE NORMAL - Vitals Vital signs reviewed: Yes - General General: Alert and oriented X 3, No acute distress - HEENT HEENT: PERRL, Ears normal, Moist mucous membranes, Pharynx benign - Neck Neck: Supple, no meningeal sign - Cardiac Cardiac: RRR, Strong equal pulses - Respiratory Respiratory: No respiratory distress, Clear bilaterally - Abdomen Abdomen: Soft, Non tender, Non distended - Derm Derm: Warm and dry - Extremities Extremities: No edema, No calf tenderness / cord - Neuro Neuro: Alert and oriented X 3 - Psych Psych: Normal mood, Normal affect Results - Vitals Vitals: Vital Signs - 24 hr 02/07/23 02/07/23 17:40 19:32 Temperature 36.9 C 36.8 C Heart Rate 85 91 Respiratory 16 18 Rate Blood Pressure 107/77 141/89 H O2 Saturation 99 99 Oxygen O2 Source Room air PD Medical Decision Making - ED course Complexity details: reviewed results, re-evaluated patient, considered differential, d/w patient ED course: Patient is very well-appearing, nontoxic. Afebrile. No hypoxia or respiratory distress. No acute findings on examination. We will place her on decongestants and cough medication for home. We will have her follow-up with her doctor for further care. Discussed antiviral therapy, patient declines at this time. Patient counseled regarding signs and symptoms for which I believe and urgent re-evaluation would be necessary. Patient with good understanding of and agreement to plan and is comfortable going home at this time This document was made in part using voice recognition software. While efforts are made to proofread this document, sound alike and grammatical errors may occur. Departure - Departure Disposition: 01 Home, Self Care Clinical Impression: COVID-19 Condition: Good Instructions: ED Viral Syndrome Follow-Up: SHELLI ROMAN MD [Primary Care Provider] - Within 1 week Prescriptions: Benzonatate [Tessalon] 200 mg PO TID PRN #30 cap PRN Reason: Cough Cetirizine HCl/Pseudoephedrine [Zyrtec-D Tablet] 1 each PO BID PRN #30 tab PRN Reason: nasal congestion Comments: Your prescriptions were sent to [facility] in [place]. Please follow-up with your doctor for further care. Please return if you worsen. Isolation precautions for COVID Day 0 is your first day of symptoms or a positive viral test. Day 1 is the first full day after your symptoms developed or your test specimen was collected. If you have COVID-19 or have symptoms, isolate for at least 5 days. IF YOU: Tested positive for COVID-19 or have symptoms, regardless of vaccination status Stay home for at least 5 days Stay home for 5 days and isolate from others in your home. Wear a well-fitting mask if you must be around others in your home. Do not travel. Ending isolation if you had symptoms End isolation after 5 full days if you are fever-free for 24 hours (without the use of fever-reducing medication) and your symptoms are improving. Ending isolation if you did NOT have symptoms End isolation after at least 5 full days after your positive test. If you got very sick from COVID-19 or have a weakened immune system You should isolate for at least 10 days. Consult your doctor before ending isolation. Take precautions until day 10 Wear a well-fitting mask Wear a well-fitting mask for 10 full days any time you are around others inside your home or in public. Do not go to places where you are unable to wear a mask. Do not travel Do not travel until a full 10 days after your symptoms started or the date your positive test was taken if you had no symptoms. Avoid being around people who are more likely to get very sick from COVID-19. Forms: Activity restrictions Discharge Date/Time: 02/07/23 19:33
[2023-02-07 19:33] VITALS: BP 141/89
== END 2023-02-07 19:33 | disposition home or self-care (01) ==
LOC: ED 17:22
DX: U07.1 COVID-19 (principal)
CPT/HCPCS: 99282; 99283; A9270

== ENCOUNTER 2023-02-13 10:14 | Emergency (ER) | payer OTHER ==
[2023-02-13] MEDS ORDERED: SUMAtriptan 6 MG/0.5 ML VIAL SUBQ STA (10:29)
[2023-02-13] MEDS ORDERED: guaiFENesin/CODEINE 5 ML UDC PO STA (10:29)
[2023-02-13] MEDS ORDERED: KETOROLAC 15 MG/ML VIAL IVP STA (10:29)
[2023-02-13] MEDS ORDERED: SODIUM CHLORIDE 0.9% 1,000 ML IV STA (10:33)
--- NOTE | 2023-02-13 10:35 | ED Physician Documentation ---
History of Present Illness - Stated complaint Stated Complaint: COUGH/EYE CONGESTION - Chief complaint Chief Complaint: Resp - History obtained from History obtained from: Patient (37-year-old woman with history of hypothyroidism became symptomatic with COVID and tested positive 6 days ago. Now with worse cough, shortness of breath, significant headache with history of migraines, chest heaviness. 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 - Present Medications Home Medications: Ambulatory Orders Medication Instructions Recorded Confirmed Thyroid,Pork [[place] Thyroid] 60 mg PO 12/20/18 Thyroid,Pork [[place] Thyroid] 90 mg PO DAILY 12/20/18 HYDROcod/ACETAM 5/325 [[place] 5/325] 1 - 2 tablet PO Q6H PRN #10 tablet 05/06/22 metroNIDAZOLE 0.75% GEL [Flagyl 45 applic TOP DAILY 05/06/22 05/06/22 Gel] Benzonatate [Tessalon] 200 mg PO TID PRN #30 cap 02/07/23 Cetirizine HCl/Pseudoephedrine 1 each PO BID PRN #30 tab 02/07/23 [Zyrtec-D Tablet] Albuterol Sulf [Ventolin Hfa 1 - 2 puffs INH Q4HR PRN #1 each 02/13/23 Inhaler] Benzonatate [Tessalon] 200 mg PO TID PRN #20 cap 02/13/23 Erythromycin Base [Erythromycin 1 appful OP 5XD 7 Days #1 gm 02/13/23 Ophthalmic Ointment] Ibuprofen [Motrin] 600 mg PO Q6H PRN #30 tab 02/13/23 guaiFENesin/CODEINE [Robitussin AC] 5 - 10 ml PO Q6H PRN #120 ml 02/13/23 - Allergies Allergies/Adverse Reactions: Allergies Allergy/AdvReac Type Severity Reaction Status Date / Time No Known Drug Allergies Allergy Verified 02/13/23 10:22 - Social History Does the pt smoke?: No Smoking Status: Never smoker Does the pt drink ETOH?: No Does the pt have substance abuse?: No - Immunizations Immunizations are current?: Yes - POLST Patient has POLST: No PD ED PE NORMAL - Vitals Vital signs reviewed: Yes (Significant resting tachycardia) - General General: Alert and oriented X 3, Other (Frequent coughing) - HEENT HEENT: PERRL, EOMI - Neck Neck: Supple, no meningeal sign, No bony TTP - Cardiac Cardiac: Other (Tachycardic but regular without murmur) - Respiratory Respiratory: Other (Mildly tachypneic, clear lungs) - Extremities Extremities: No edema, No calf tenderness / cord - Neuro Neuro: Alert and oriented X 3, Normal speech Eye Opening: Spontaneous Motor: Obeys Commands Verbal: Oriented GCS Score: 15 Results - Vitals Vitals: Vital Signs - 24 hr 02/13/23 10:18 Temperature 36.4 C L Heart Rate 117 H Respiratory 20 Rate Blood Pressure 119/79 O2 Saturation 97 Oxygen O2 Source Room air - Labs Labs: Laboratory Tests 02/13/23 02/13/23 10:47 10:47 WBC 11.5 H RBC 4.65 Hgb 14.0 Hct 42.4 MCV 91.2 MCH 30.1 MCHC 33.0 RDW 12.7 Plt Count 391 MPV 9.1 Neut # (Auto) 8.8 H Lymph # (Auto) 2.0 [place] # (Auto) 0.5 Eos # (Auto) 0.1 Baso # (Auto) 0.0 Absolute Nucleated RBC 0.00 Nucleated RBC % 0.0 Sodium 140 Potassium 3.4 L Chloride 106 Carbon Dioxide 22 Anion Gap 12.0 BUN 10 Creatinine 0.6 Estimated GFR (MDRD) 113 Glucose 132 H Calcium 9.3 - Rads (name of study) CTA CHESt Relevant Findings:: Final report received, EMP independent interpretation of test PD Medical Decision Making - ED course ED course: 37-year-old woman with clear lungs in the setting of recent COVID but shortness of breath and cough with significant tachycardia. Differential would include PE which I will test for. CBC reviewed with mild nonspecific leukocytosis. BMP reviewed and basically normal save very mild hypokalemia. She was administered subcutaneous Imitrex, oral codeine cough syrup, IV ketorolac, and IV fluids, on recheck she was feeling much better. Her CT was negative for PE or infiltrate. Departure - Departure Disposition: 01 Home, Self Care Clinical Impression: COVID-19 Condition: Good Record reviewed to determine appropriate education?: Yes Instructions: ED Viral Syndrome Prescriptions: Albuterol Sulf [Ventolin Hfa Inhaler] 1 - 2 puffs INH Q4HR PRN #1 each PRN Reason: Shortness Of Air/Wheezing Erythromycin Base [Erythromycin Ophthalmic Ointment] 1 appful OP 5XD 7 Days #1 gm Ibuprofen [Motrin] 600 mg PO Q6H PRN #30 tab PRN Reason: Pain guaiFENesin/CODEINE [Robitussin AC] 5 - 10 ml PO Q6H PRN #120 ml PRN Reason: Cough Benzonatate [Tessalon] 200 mg PO TID PRN #20 cap PRN Reason: Cough Comments: I sent your prescriptions electronically to [facility] in [place]. Please return if worse. Follow-up with your doctor at the end of the week for recheck. Forms: Activity restrictions
[2023-02-13] MEDS ORDERED: iohexoL-300 100 ML VIAL ONE (10:38)
[2023-02-13 10:52] LABS: BASOPHILS % (AUTO) 0.2 %; EOSINOPHILS # (AUTO) 0.1 10^3/uL (0.0-0.7); HCT - HEMATOCRIT 42.4 % (37.0-47.0); LYMPHOCYTES % (AUTO) 17.7 %; MEAN CORPUSCULAR HEMOGLOBIN 30.1 pg (27.0-31.0); MEAN CORPUSCULAR VOLUME 91.2 fL (81.0-99.0); MEAN PLATELET VOLUME 9.1 fL (7.9-10.8); MONOCYTES # (AUTO) 0.5 10^3/uL (0.0-1.0); NEUTROPHILS # (AUTO) 8.8 10^3/uL (1.5-6.6); NEUTROPHILS % (AUTO) 76.4 %; PLT - PLATELET COUNT 391 10^3/uL (130-450); RED BLOOD COUNT 4.65 10^6/uL (4.20-5.40); RED CELL DISTRIBUTION WIDTH 12.7 % (12.0-15.0); WHITE BLOOD COUNT 11.5 x10^3/uL (4.8-10.8)
[2023-02-13 11:01] LABS: CALCIUM 9.3 mg/dL (8.5-10.3); CREATININE 0.6 mg/dL (0.4-1.0); POTASSIUM 3.4 mmol/L (3.5-5.0)
--- NOTE | 2023-02-13 12:01 | CT Report ---
PROCEDURE: ANGIO CHEST W/WO INDICATIONS: dyspnea pe protocol CONTRAST: 100 mL Omnipaque 300 IV contrast TECHNIQUE: After the administration of intravenous contrast, 2 mm axial images were acquired from the pulmonary apices to the posterior costophrenic angles during the arterial phase. In addition, 1 mm lung kernel and 5 mm soft tissue kernel reconstructions were performed. 3-dimensional coronal oblique maximum int ensity projection (MIP) reformats, 8 mm axial MIP, and 5 mm coronal and sagittal MPR reformats were t hen performed through the thorax. For radiation dose reduction, the following was used: automated exp osure control, adjustment of mA and/or kV according to patient size. COMPARISON: Chest radiograph June 16, 2022 FINDINGS: Image quality: Excellent. Large vessels: No filling defects within the opacified pulmonary arteries, accounting for motion and contrast timing. No evidence of acute aortic syndrome or aortic aneurysm. Lungs and pleura: No consolidation. No pleural effusions. No pneumothorax. No suspicious pulmonary n odules which require follow up. Mediastinum: Heart size is normal. No pericardial effusions. No mediastinal adenopathy by size criter ia. Chest wall and lower neck: Thyroid is unremarkable. No axillary or supraclavicular adenopathy by size . Bones: No aggressive osseous abnormality. Upper Abdomen: Unremarkable. IMPRESSION: 1.No PE. No pulmonary consolidation. Reviewed by: Ruben Alberto MD on 02/13/2023 10:59 AM [facility] Approved by: Ruben Alberto MD on 02/13/2023 10:59 AM [facility] Station ID: [id number]
[2023-02-13 12:38] VITALS: BP 118/82
[2023-02-13] MEDS ORDERED: iohexoL-300 100 ML VIAL IVP ONE (13:01)
== END 2023-02-13 13:11 | disposition home or self-care (01) ==
LOC: ED 10:14
DX: U07.1 COVID-19 (principal)
CPT/HCPCS: 36415; 71275; 80048; 85025; 96372; 96374; 99283; 99284; A9270; Q9967

== ENCOUNTER 2023-11-06 12:36 | Emergency (ER) | payer OTHER ==
[2023-11-06 12:51] VITALS: BP 122/69; O2SAT 100
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
== END 2023-11-06 13:09 | disposition home or self-care (01) ==
LOC: ED 12:36
DX: M27.63 Post-osseointegration mechanical failure of dental implant (principal)
CPT/HCPCS: 99282; 99283